=== PATIENT | female | born 1995 | race Caucasian/White ===

== ENCOUNTER 2022-08-12 16:11 | Emergency (ER) | payer OTHER, SELFPAY ==
--- NOTE | ~2022-08-12 | XR_ITS ---
EXAMINATION: XR foot LT min 3V DATE: 08/12/2022 17:04 INDICATION: Left foot pain TECHNIQUE: Dorsoplantar, lateral, and 2 oblique views of the left foot were obtained. COMPARISON: None. FINDINGS: Bone alignment is normal. There is no fracture. The joint spaces are normal. No productive changes of bony healing are identified. There is a plantar calcaneal enthesophyte. IMPRESSION: 1. No acute osseous abnormality. Reviewed, dictated and finalized at location B.
[2022-08-12 16:25] VITALS: BP 137/89; PULSE 100; RESP 16; TEMP 36.4; O2SAT 98
--- NOTE | 2022-08-12 16:51 | ED.LOWEXIN ---
HPI - Extremity Injury (Lower) General Chief Complaint: Extremity Injury, Lower Stated Complaint: Left Foot Pain Time Seen by Provider: 08/12/22 16:51 Source: patient and RN notes reviewed Mode of arrival: ambulatory Limitations: no limitations History of Present Illness HPI Narrative: 27-year-old male presents to the [facility] with complaints of left lateral anterior foot pain. Patient states that she fell and hurt it approximately 8 to 9 days ago. Patient reports using [id number] products and icing it. Denies hitting head. No loss of consciousness. Denies back pain Related Data Home Medications Medication Instructions Recorded Confirmed albuterol sulfate 90 mcg/actuation 1 puff inhalation PRN PRN 08/12/22 08/12/22 aerosol inhaler Shortness Of Breath fexofenadine 30 mg tablet 30 mg DAILY 08/12/22 08/12/22 Allergies Allergy/AdvReac Type Severity Reaction Status Date / Time No Known Allergies Allergy Verified 08/12/22 16:30 Review of Systems Review of Systems: All systems reviewed & are unremarkable except as noted in HPI and below Constitutional: Constitutional: Reports no additional constitutional complaints, Denies chills and Denies fever(s) Eyes: Eyes: Reports no additional eye complaints ENT: Reports system reviewed and no additional complaints, except as documented Cardiovascular: Cardiovascular: Reports no additional cardiovascular complaints Respiratory: Respiratory: Reports no additional respiratory complaints Gastrointestinal: Gastrointestinal: Reports no additional gastrointestinal complaints Musculoskeletal: Musculoskeletal: Reports as per HPI Integumentary/Breasts: Skin/Breast: Reports system reviewed and no additional complaints, except as docu Neurologic: Reports system reviewed and no additional complaints, except as documented Psychiatric: Psychiatric: Reports no additional psychiatric complaints Allergic/Immunologic: Allergic/Immunologic: Reports no additional allergic/immunologic complaints PMFSH Comments At the time of my signature, I reviewed and agree with the nursing past medical, surgical, social, and family history. There is no relevant family history pertinent to the patient complaint. Exam Const: General: healthy appearing, no acute distress, alert and well nourished Nutritional Appearance: well nourished Orientation/consciousness: patient oriented x3 Limitations: no limitations HENMT: Head: normal to inspection Ears: external ears normal Eyes: General: appearance normal, both eyes and all related structures Pupils: Equal, round and reactive pupils present Neck: Neck: normal visual inspection, no lymphadenopathy and no meningeal signs Chest: Chest palpation & inspection: normal inspection of the chest Resp: Effort & Inspection: normal respiratory effort and no use of accessory muscles Auscultation: clear to auscultation bilaterally, no crackles, no rales, no rhonchi and no wheezes Cardio: Rate: regular rate Rhythm: regular rhythm Back/Spine/Pelvis: Cervical Spine: normal cervical lordosis Thoracic/Lumbar Spine: thoracic and lumbar spine normal to inspection Skin: General skin exam: normal color Rashes: no rashes Wounds: no wounds Neuro: General: patient oriented x3, moves all extremities, no meningeal signs and no focal motor deficits Cranial nerves: Yes Equal, round and reactive pupils present Speech: normal speech Gait exam (Neuro): Normal gait present Extrem: General: normal to inspection, full ROM and capillary refill normal Left lower extremity: foot Details: tenderness (Anterior lateral arm) Ankle/foot/toe images: 1. Tenderness to palpation, minor swelling. No bruising, redness or signs of infection. Present pedal pulse. Sensation intact in all 5 toes. Able to move all 5 toes and full range of motion of the ankle. Psych: Appearance: grossly normal and well kempt Mental Status: mental status grossly normal Affect: normal affect At
== END 2022-08-12 17:41 | disposition home or self-care (01) ==
PROVIDERS: Emergency Provider Nurse Practitioner; PCP Family Medicine
DX: S90.32XA Contusion of left foot, initial encounter (principal); S93.602A Unspecified sprain of left foot, initial encounter; W19.XXXA Unspecified fall, initial encounter
CPT/HCPCS: 73630; 99213; G0463

== ENCOUNTER 2024-02-09 09:25 | Outpatient (CLI) | payer OTHER, SELFPAY ==
--- NOTE | ~2024-02-09 | CT_ITS ---
Clinical Indication: Cervical lymphadenopathy CT Scan of the Neck and Chest with Contrast: Technique: Contiguous sections were acquired throughout the neck and chest after intravenous administ ration of 75 cc of Omnipaque 350. Dose reduction technique was used on this scan by utilizing automa seamus exposure control and iterative reconstruction technique. The dose-length product (DLP) was 1039.9 4 mGy-cm. Findings: No cervical lymphadenopathy identified. No abnormal mass lesion or fluid collection seen in the neck. Parotid and submandibular glands are unremarkable. Parapharyngeal fat preserved bilaterall y. Visualized aerodigestive tract unremarkable. Thyroid gland unremarkable. Vascular structures enhance normally. Paranasal sinuses are clear. There is no evidence of any significant mediastinal, hilar or axillary lymphadenopathy. The mediastin al soft tissues appear normal. There is no evidence of pleural or pericardial effusion. The lungs are clear. No pulmonary nodules or infiltrates are noted. Visualized upper abdomen is unremarkable. Impression: No significant abnormalities seen. Reviewed, dictated and finalized at [facility]. Impression: No significant abnormalities seen.
== END 2024-02-09 09:26 | disposition home or self-care (01) ==
LOC: ANHIMG 09:32
PROVIDERS: PCP Family Medicine; Visit Provider Registered Nurse
DX: R59.1 Generalized enlarged lymph nodes (principal)
CPT/HCPCS: 70491; 71260; Q9967

== ENCOUNTER 2024-12-06 12:26 | Outpatient (CLI) | payer OTHER, SELFPAY ==
--- NOTE | ~2024-12-06 | US_ITS ---
EXAM: Focused ultrasound examination of the soft tissues of the left calf HISTORY: painful lump on left lower leg TECHNIQUE: Sonographic evaluation of the soft tissues of the left lower leg were performed assessing grayscale appearance and color Doppler flow. Sonographic evaluation of the right lower leg was perfor med for comparison COMPARISON: As above. FINDINGS: Sonographic evaluation of the soft tissues of the left lower leg in the area of clinical concern demo nstrate benign fibrofatty and fibromuscular elements without a cystic or solid lesion of concern. IMPRESSION: No sonographic abnormality is appreciated on focused ultrasound examination of the left lower leg. Reviewed, dictated and finalized at location A. [employer]
== END 2024-12-06 12:27 | disposition home or self-care (01) ==
LOC: GOSHIMG 12:28
PROVIDERS: PCP Registered Nurse; Visit Provider Registered Nurse
DX: R22.42 Localized swelling, mass and lump, left lower limb (principal)
CPT/HCPCS: 76882

== ENCOUNTER 2025-05-14 08:57 | Outpatient (CLI) | payer OTHER, SELFPAY ==
--- NOTE | ~2025-05-14 | MR_ITS ---
EXAMINATION: MR lower leg LT wo con DATE: 05/14/2025 09:29 INDICATION: Lump at the mid left calf TECHNIQUE: Magnetic resonance imaging (MRI) of the left lower leg was performed without intravenous c ontrast. A marker was placed over the mass. Sequences included axial, sagittal and coronal T1-weight ed FSE and fluid sensitive FSE STIR. The contralateral right lower leg is included on the coronal prasanna ges. COMPARISON: None. FINDINGS: Bone alignment is normal. Normal marrow signal throughout with no reactive edema, fracture or patholo gic marrow replacing process. Symmetric subtle increased fluid signal throughout the bilateral gastro cnemius muscles which is likely related to recent physical activity. No asymmetric muscle atrophy or other abnormal muscle signal. Visualized portions of the tendons are normal. No evident joint effusio ns or other abnormal fluid collections. No masses. Normal appearance to the subcutaneous fat and musc ulature underlying the marker indicating the region of concern at the posterolateral aspect of the mi d left calf with no lipoma, fascial herniation, varicose veins or other abnormal masses identified. IMPRESSION: 1. Relatively symmetric subtle increased fluid signal at the bilateral gastrocnemius muscles most lik juan physiologic response to recent muscular activity. Otherwise normal study with no abnormal masses, fluid collections or other correlate for the reported palpable abnormality of the posterior lateral aspect of the left mid calf. Reviewed, dictated and finalized at location A. IMPRESSION: 1. Relatively symmetric subtle increased fluid signal at the bilateral gastrocn emius muscles most likely physiologic response to recent muscular activity. Oth erwise normal study with no abnormal masses, fluid collections or other correla te for the reported palpable abnormality of the posterior lateral aspect of the left mid calf.
== END 2025-05-14 08:58 | disposition home or self-care (01) ==
LOC: GOSHIMG 08:58
PROVIDERS: PCP Nurse Practitioner Family; Visit Provider Nurse Practitioner Family
DX: R22.42 Localized swelling, mass and lump, left lower limb (principal)
CPT/HCPCS: 73718